=== PATIENT | female | born 1955 | race Caucasian/White ===

== ENCOUNTER 2018-02-23 10:31 | Outpatient (CLI) | payer MEDICARE ==
[2018-02-23] MEDS ORDERED: ISOVUE-370 76%-LOCM 1 ML ONE (14:00)
--- NOTE | 2018-02-23 14:35 | CT ---
CT ABDOMEN AND PELVIS WITH IV CONTRAST: TECHNIQUE: Multiple axial tomograms obtained through the abdomen and pelvis with IV enhancement. Oral contrast was administered. INDICATIONS: Cirrhosis. History of hepatitis C. Right upper quadrant pain. COMPARISON: CT abdomen and pelvis from 07/31/2015. FINDINGS: The lung bases are clear. The liver shows no evidence of mass. The liver is slightly heterogeneous but stable in appearance. Mild nodular contour of the liver again seen, consistent with a history of cirrhosis. Prominent caud ate lobe, also consistent with a history of cirrhosis. The spleen is in the upper normal range, jarad uring approximately 14 cm in AP dimension. The pancreas is unremarkable. The adrenal glands are normal. The kidneys are unremarkable. Small bowel loops are normal. The appendix appears unremarkable. The colon is unremarkable. The tr ansverse colon and left colon are nondistended and poorly evaluated. The aorta is of normal caliber. No evidence of adenopathy. Images through the pelvis show a contracted urinary bladder. Evidence of a hysterectomy. IMPRESSION: 1. Changes of cirrhosis again noted, stable from the prior CT of 2015. 2. No evidence of acute intraabdominal process. POS: [facility]
== END 2018-02-23 10:32 | disposition home or self-care (01) ==
LOC: BICCT 10:31
PROVIDERS: ATTEND Internal Medicine Gastroenterology
DX: K74.60 Unspecified cirrhosis of liver (principal); R10.11 Right upper quadrant pain; R14.0 Abdominal distension (gaseous); R19.7 Diarrhea, unspecified; Z86.19 Personal history of other infectious and parasitic diseases
CPT/HCPCS: 74177

== ENCOUNTER 2019-04-16 09:42 | Outpatient (CLI) | payer MEDICARE ==
--- NOTE | 2019-04-16 12:58 | ULT ---
HEPATIC ULTRASOUND: HISTORY: Cirrhosis. FINDINGS: Real-time imaging of the right upper quadrant shows the gallbladder to have been removed. The common duct is 6 mm. The liver has a heterogeneous appearance with increased echogenicity suggesting fatty change. The liver measures 16.9 cm in length. The spleen is 12.2 cm. DOPPLER EVALUATION WITH SPECTRAL ANALYSIS: Normal flow pattern is shown within the liver. IMPRESSION: Heterogeneity of the liver suggesting some element of fatty change. Also subtle nodularity to the case rface of the liver which would be suggestive of cirrhosis. The spleen is borderline in size. POS: [facility]
== END 2019-04-16 09:43 | disposition home or self-care (01) ==
LOC: BICULT 09:42
PROVIDERS: ATTEND Physician Assistant Medical
DX: R10.11 Right upper quadrant pain (principal); R19.7 Diarrhea, unspecified; K74.60 Unspecified cirrhosis of liver
CPT/HCPCS: 76705

== ENCOUNTER 2020-03-18 09:15 | Outpatient (CLI) | payer MEDICARE ==
--- NOTE | 2020-03-18 10:05 | ULT ---
ULTRASOUND LIVER WITH GRAYSCALE, COLOR-FLOW AND SPECTRAL DOPPLER IMAGING: HISTORY: Cirrhosis of the liver COMPARISON: 04/16/2019 FINDINGS: The liver demonstrates a nodular appearance with the heterogeneous echotexture consistent with cirrho sis. No evidence of intrahepatic mass or abnormal biliary ductal dilatation is seen. The patient is status postcholecystectomy. The spleen is normal measuring 10.6 cm in length. The comm on duct measures 7 mm in diameter. No free fluid is seen. There is normal flow and spectral waveforms in the hepatic, portal and splenic vasculature. IMPRESSION: Cirrhosis of the liver without evidence of hepatic mass.
== END 2020-03-18 09:16 | disposition home or self-care (01) ==
LOC: BICULT 09:15
PROVIDERS: ATTEND Physician Assistant Medical
DX: K74.60 Unspecified cirrhosis of liver (principal); R53.82 Chronic fatigue, unspecified; B18.2 Chronic viral hepatitis C
CPT/HCPCS: 76705

== ENCOUNTER 2020-03-18 12:50 | Outpatient (CLI) | payer MEDICARE ==
--- NOTE | 2020-03-18 14:10 | RAD ---
CERVCIAL SPINE SERIES THREE VIEWS WITH FLEXION AND EXTENSION: 03/18/20 HISTORY: Neck pain. There is a severe reversal to the normal cervical curvature. There are marked arthritic changes. Disc narrowing most pronounced at C4-5, C5-6 and C6-7. The anterolisthesis of FC3 on C4 reduces in extens ion. Degenerative facet changes are noted. IMPRESSION: Severe arthritic changes of the spine and reversal of the normal cervical curve. Moderate reduction o f the anterolisthesis of C3 on C4 in extension. POS: [facility]
== END 2020-03-18 12:51 | disposition home or self-care (01) ==
LOC: TBSIIMAG 12:50
PROVIDERS: ATTEND Neurological Surgery
DX: M54.2 Cervicalgia (principal); G89.29 Other chronic pain; M47.812 Spondylosis without myelopathy or radiculopathy, cervical region; M43.12 Spondylolisthesis, cervical region
CPT/HCPCS: 72040

== ENCOUNTER 2022-01-19 10:13 | Outpatient (CLI) | payer MEDICARE | END 2022-01-19 10:14 | disposition home or self-care (01) | LOC: BICULT 10:13 | PROVIDERS: ATTEND Physician Assistant Medical | DX: K74.60 Unspecified cirrhosis of liver (principal); B18.2 Chronic viral hepatitis C | CPT/HCPCS: 76705 ==

== ENCOUNTER 2023-01-31 10:10 | Outpatient (CLI) | payer MEDICARE | END 2023-01-31 10:11 | disposition home or self-care (01) | LOC: ULT 10:10 | PROVIDERS: ATTEND Physician Assistant Medical | DX: K74.60 Unspecified cirrhosis of liver (principal); K76.0 Fatty (change of) liver, not elsewhere classified; Z90.49 Acquired absence of other specified parts of digestive tract | CPT/HCPCS: 76705 ==

== ENCOUNTER 2025-03-20 10:32 | Outpatient (CLI) | payer MEDICARE | END 2025-03-20 10:33 | disposition home or self-care (01) | LOC: ULT 10:32 | PROVIDERS: ATTEND Physician Assistant Medical | DX: K74.60 Unspecified cirrhosis of liver (principal); K76.0 Fatty (change of) liver, not elsewhere classified; Z90.49 Acquired absence of other specified parts of digestive tract | CPT/HCPCS: 76705 ==